=== PATIENT | male | born 1995 | race Caucasian/White ===

== ENCOUNTER 2017-11-16 14:43 | Observation (INO) | payer MEDICAID, OTHER ==
[2017-11-16] MEDS ORDERED: NS 0.9% 1000 ML* 2,000 ML IV ONE (15:27)
[2017-11-16] MEDS ORDERED: LORazepam INJ* 2 MG/ML 1 ML VIAL IV ONE (15:27)
[2017-11-16 16:13] LABS: ABS Basophils 0 10^3/ul (0-0.2); ABS Eosinophils 0.2 10^3/ul (0-0.6); ABS Monocytes 0.5 10^3/ul (0-0.8); ABS Neutrophils 4.4 10^3/ul (1.5-7.7); ABS Nucleated RBC 0 10^3/ul; Eosinophil % 2.3 % (0-6); Hematocrit 39 % (42-52); Hemoglobin 13.5 g/dl (14.0-18.0); Lymphocyte % 28.2 % (25-47); Mean Corpuscular HGB Conc 35 g/dl (31-36); Mean Corpuscular Hemoglobin 28 pg (27-31); Mean Corpuscular Volume 81 fL (80-94); Mean Platelet Volume 8 um3 (7.4-10.4); Nucleated Red Blood Cells % 0; Platelet Count 191 10^3/ul (150-450); Red Blood Count 4.78 10^6/ul (4.0-5.4); Red Cell Distribution Width 13 % (10.5-15); White Blood Count 7.1 10^3/ul (3.5-10.8)
[2017-11-16 16:27] LABS: EGFR Non-African American 99.8 (>60)
[2017-11-16] MEDS ORDERED: LORazepam INJ* 2 MG/ML 1 ML VIAL IV PUSH ONE (16:38)
[2017-11-16] MEDS: NS 0.9% 1000 ML* 1,000 ML IV SCH (18:08)
[2017-11-16] MEDS ORDERED: Methadone TAB* 10 MG PO PRN (18:34)
--- NOTE | 2017-11-16 18:36 | ED ---
Rex Bowie Abhishek, scribed for Atul Larson MD on 11/16/17 at 1542 . Substance Abuse/Use - HPI Summary HPI Summary: This patient is a 22 year old M BIBA with a chief complaint of substance abuse since 1300 on 11/16/17. The pt was found unresponsive, not breathing and unconscious in his apartment by his landlord. Police and EMS both arrived on the scene and the police gave the pt narcan. Overdose, 1100 armenian equivalent to baclofen. The police gave pt the Narcan. According to the pt, he was trying to get high and currently the pt is out of pt rehab. Pt overdosed on phenibut ( 2 grams) and was also taking his typical dosage (105 mg) of methadone. Currently pt is awake and states he is undergoing withdrawal.Pt also reports shaking behavior. The Pt denies abd pain. - History Of Current Complaint Chief Complaint: EDOverdose Stated Complaint: OVERDOSE Time Seen by Provider: 11/16/17 15:08 Hx Obtained From: Patient, EMS Severity Currently: None Aggravating Factor(s): Nothing Alleviating Factor(s): Nothing Associated Signs And Symptoms: Other: - Syncope and Negative abd pain - Allergies/Home Medications Allergies/Adverse Reactions: Allergies Allergy/AdvReac Type Severity Reaction Status Date / Time Ondansetron [From Zofran] Allergy Severe INFLAMMATION Verified 06/12/16 16:48 AT IV SITE Buspirone [From Buspar] Allergy tardive Verified 06/12/16 16:48 dyskinesia PMH/Surg Hx/FS Hx/Imm Hx Respiratory History: Reports: Hx Asthma Sensory History: Reports: Hx Contacts or Glasses Opthamlomology History: Reports: Hx Contacts or Glasses Neurological History: Reports: Hx Migraine Psychiatric History: Reports: Hx Anxiety, Hx Depression, Hx Substance Abuse - Surgical History Surgery Procedure, Year, and Place: APPENDECTOMY Hx Anesthesia Reactions: No - Immunization History Immunizations Up to Date: Yes Infectious Disease History: No Infectious Disease History: Denies: Hx Clostridium Difficile, Hx Hepatitis, Hx Human Immunodeficiency Virus (HIV), Hx of Known/Suspected MRSA, Hx Shingles, Hx Tuberculosis, Hx Known/ Suspected VRE, Hx Known/Suspected VRSA, Traveled Outside the [place] in Last 30 Days - Family History Known Family History: Positive: Other - Negative Cancer Negative: Cardiac Disease, Diabetes - Social History Alcohol Use: None Substance Use Type: Reports: Other Substance Use Comment - Amount & Last Used: methadone. muscle relaxers Smoking Status (MU): Former Smoker Type: eCigarettes Review of Systems Constitutional: Negative Eyes: Negative ENT: Negative Cardiovascular: Negative Positive: Other - no Respiratory rate (onset); Currently breathing normally Negative: Abdominal Pain Genitourinary: Negative Musculoskeletal: Other - shaking behavior Skin: Negative Positive: Syncope - Onset (LOC) Psychological: Normal All Other Systems Reviewed And Are Negative: Yes Physical Exam - Summary Physical Exam Summary: General: agitated and figitating Skin: warm, color reflects adequate perfusion, dry Head: normal Eyes: pupils 5 mm minimal reaction ENT: normal Neck: supple, nontender Respiratory: CTA, breath sounds present Cardiovascular: RRR Abdomen: soft, nontender Bowel: present Musculoskeletal: normal, strength/ROM intact Neurological: normal, sensory/motor intact, A&O x3 Psychological: affect/mood appropriate Triage Information Reviewed: Yes Vital Signs On Initial Exam: Initial Vitals Temp Pulse Resp BP Pulse Ox 96.7 F 66 17 148/83 100 11/16/17 14:57 11/16/17 14:57 11/16/17 14:57 11/16/17 14:57 11/16/17 14:57 Vital Signs Reviewed: Yes - Jerry Coma Scale Coma Scale Total: 15 Diagnostics - Vital Signs Vital Signs Temp Pulse Resp BP Pulse Ox 11/16/17 15:36 17 11/16/17 14:57 96.7 F 66 17 148/83 100 - Laboratory Lab Results: Lab Results 11/16/17 11/16/17 11/16/17 Range/Units 16:00 16:00 16:00 WBC 7.1 (3.5-10.8) 10^3/ul RBC 4.78 (4.0-5.4) 10^6/ul Hgb 13.5 L (14.0-18.0) g/dl Hct 39 L (42-52) % MCV 81 (80-94) fL MCH 28 (27-31) pg MCHC 35 (31-36) g/dl RDW 13 (10.5-15) % Plt Count 191 (150-450) 10^3/ul MPV 8 (7.4-10.4) um3 Neut % (Auto) 62.0 (38-83) % Lymph % (Auto) 28.2 (25-47) % Major % (Auto) 6.9 (1-9) % Eos % (Auto) 2.3 (0-6) % Baso % (Auto) 0.6 (0-2) % Absolute Neuts (auto) 4.4 (1.5-7.7) 10^3/ul Absolute Lymphs (auto) 2.0 (1.0-4.8) 10^3/ul Absolute Monos (auto) 0.5 (0-0.8) 10^3/ul Absolute Eos (auto) 0.2 (0-0.6) 10^3/ul Absolute Basos (auto) 0 (0-0.2) 10^3/ul Absolute Nucleated RBC 0 10^3/ul Nucleated RBC % 0 INR (Anticoag Therapy) 1.00 (0.77-1.02) APTT 34.5 (26.0-36.3) seconds Sodium 138 (133-145) mmol/L Potassium 4.0 (3.5-5.0) mmol/L Chloride 104 (101-111) mmol/L Carbon Dioxide 28 (22-32) mmol/L Anion Gap 6 (2-11) mmol/L BUN 5 L (6-24) mg/dL Creatinine 0.93 (0.67-1.17) mg/dL Est GFR ( Amer) 128.4 (>60) Est GFR (Non-Af Amer) 99.8 (>60) BUN/Creatinine Ratio 5.4 L (8-20) Glucose 81 (70-100) mg/dL Lactic Acid (0.5-2.0) mmol/L Calcium 9.2 (8.6-10.3) mg/dL Total Bilirubin 0.40 (0.2-1.0) mg/dL AST 17 (13-39) U/L ALT 8 (7-52) U/L Alkaline Phosphatase 71 (34-104) U/L Total Creatine Kinase 117 (10-223) U/L CK-MB (CK-2) 3.9 (0.6-6.3) ng/mL Troponin I 0.00 (<0.04) ng/mL C-Reactive Protein 3.23 (< 5.00) mg/L Total Protein 7.2 (6.4-8.9) g/dL Albumin 4.2 (3.2-5.2) g/dL Globulin 3.0 (2-4) g/dL Albumin/Globulin Ratio 1.4 (1-3) TSH 1.01 (0.34-5.60) mcIU/mL Salicylates < 2.50 (<30) mg/dL Acetaminophen < 15 mcg/mL Serum Alcohol < 10 (<10) mg/dL 11/16/17 Range/Units 16:00 WBC (3.5-10.8) 10^3/ul RBC (4.0-5.4) 10^6/ul Hgb (14.0-18.0) g/dl Hct (42-52) % MCV (80-94) fL MCH (27-31) pg MCHC (31-36) g/dl RDW (10.5-15) % Plt Count (150-450) 10^3/ul MPV (7.4-10.4) um3 Neut % (Auto) (38-83) % Lymph % (Auto) (25-47) % Major % (Auto) (1-9) % Eos % (Auto) (0-6) % Baso % (Auto) (0-2) % Absolute Neuts (auto) (1.5-7.7) 10^3/ul Absolute Lymphs (auto) (1.0-4.8) 10^3/ul Absolute Monos (auto) (0-0.8) 10^3/ul Absolute Eos (auto) (0-0.6) 10^3/ul Absolute Basos (auto) (0-0.2) 10^3/ul Absolute Nucleated RBC 10^3/ul Nucleated RBC % INR (Anticoag Therapy) (0.77-1.02) APTT (26.0-36.3) seconds Sodium (133-145) mmol/L Potassium (3.5-5.0) mmol/L Chloride (101-111) mmol/L Carbon Dioxide (22-32) mmol/L Anion Gap (2-11) mmol/L BUN (6-24) mg/dL Creatinine (0.67-1.17) mg/dL Est GFR ( Amer) (>60) Est GFR (Non-Af Amer) (>60) BUN/Creatinine Ratio (8-20) Glucose (70-100) mg/dL Lactic Acid 0.6 (0.5-2.0) mmol/L Calcium (8.6-10.3) mg/dL Total Bilirubin (0.2-1.0) mg/dL AST (13-39) U/L ALT (7-52) U/L Alkaline Phosphatase (34-104) U/L Total Creatine Kinase (10-223) U/L CK-MB (CK-2) (0.6-6.3) ng/mL Troponin I (<0.04) ng/mL C-Reactive Protein (< 5.00) mg/L Total Protein (6.4-8.9) g/dL Albumin (3.2-5.2) g/dL Globulin (2-4) g/dL Albumin/Globulin Ratio (1-3) TSH (0.34-5.60) mcIU/mL Salicylates (<30) mg/dL Acetaminophen mcg/mL Serum Alcohol (<10) mg/dL Result Diagrams: 11/16/17 16:00 11/16/17 16:00 Lab Statement: Any lab studies that have been ordered have been reviewed, and results considered in the medical decision making process. - EKG 1532 EKG Rhythm: Sinus Rhythm - 77 bpm - Additional Comments Diagnostic Additional Comments: An EKG at 1532 shows borderline prolonged QT interval (QTc at 478), and ST elevation probable normal early repolarization pattern. Course/Dx - Course Course Of Treatment: NURSING DISCUSSED WITH POISON CONTROL. ADMIT HOSPITALIST. CRITICAL CARE TIME LESS THAN 30 MINUTES. - Diagnoses Provider Diagnoses: Overdose Discharge - Discharge Plan Condition: Stable Disposition: ADMITTED TO [facility] documentation as recorded by the Rex mir Abhishek accurately reflects the service I personally performed and the decisions made by me, Atul Larson MD.
[2017-11-16] MEDS: LORazepam INJ* 2 MG/ML 1 ML VIAL IV PUSH PRN (20:33)
--- NOTE | 2017-11-16 23:48 | HP ---
HISTORY AND PHYSICAL: * ADDENDUM: Please note that I was able to be contacted by a nurse from [facility] on [facility] who told me that the patient is currently receiving mg of methadone a day and she confirmed that the medications that the patient receive at their clinic would not come up on the I - STOP. At this point, I believe that it is safer for the patient to be placed back on a smaller dose of the methadone for him to be withdrawing and be medicated with Ativan for that. At this point, I am going to place him back on methadone and when he is awake enough, give him a smaller dose for the night. [id number]/[facility] #: [id number] MTDD
--- NOTE | 2017-11-16 23:56 | HP ---
HISTORY AND PHYSICAL: ADDENDUM: After discussing the case with our psych social worker, she was able to have me contacted by Leticia who is a counselor from the [facility] on [facility]. Leticia was able to confirm that the patient is a current patient at the [facility]. Although she was able to confirm that , she was unable to confirm anything else. She could not give me information about the patient's methadone dose. All this is the patient's methadone could have been prescribed by them, could not appear on I-STOP control of medication checked when I did it. I asked her to connect me with the healthcare professional who could give me the information. Leticia stated that she requests for me to fax her signed by the patient's consent. But, I informed Leticia that unfortunately, the patient is in and out of consciousness after 4 mg of IV Ativan and that will be right next at this point impossible. Leticia told me that I should hold on the line and she will transfer me to healthcare professional who be able to give me the required information and then hung up. [id number]/[facility] #: [id number] ANGELA
[2017-11-17] MEDS: NS 0.9% 1000 ML* 1,000 ML IV SCH (00:32)
--- NOTE | 2017-11-17 00:56 | HP ---
TWO ADDENDUMS NOW INCLUDED ON THIS REPORT HISTORY AND PHYSICAL: DATE OF ADMISSION: 11/16/17 CHIEF COMPLAINT: The patient was found unresponsive by his landlord in his apartment. He was treated with Narcan, he woke up, got agitated. He apparently took 105 mg of methadone today and some ration equivalent of baclofen. HISTORY OF PRESENT ILLNESS: As above mentioned, Aryan Carrera is a 22-year-old drug- addict with a history of IV drug use who had been on methadone for some time. He currently received a total of 4 mg of IV Ativan after he became agitated after Narcan. In the ED, he is intermittently waking up and giving me fractional information. He stated that he had been on methadone for several months prescribed by a clinic on [facility] in [place], [place] from [facility]. Having said that, when I checked his I-STOP account, he does not have any narcotics prescribed to him that I could find. He also took an equivalent of ration medication that he ordered online. That was the only new thing that he did today. He woke up after the Narcan, got agitated, got 4 mg of IV Ativan. He is going to be placed on overnight observation in the Intensive Care Unit with his diagnosis of methadone overdose. PAST MEDICAL HISTORY: 1. History of IV drug use. 2. History of depression. 3. History of ADHD. MEDICATIONS: Unknown. The patient stated that he takes methadone at 105 mg daily prescribed by [facility] on [facility]. Once again, that had not been proven. ALLERGIES: From medical records include ZOFRAN and BUSPIRONE. FAMILY HISTORY: Unobtainable from the patient. SOCIAL HISTORY: The patient stated that he had been clean for several months and he uses methadone. He denies any alcohol or tobacco use. REVIEW OF SYSTEMS: Basically unobtainable from this sedated patient. Asked his next of kin, he listed his mother, Zamzam Espinosa, who lives in [place], [place]. PHYSICAL EXAMINATION GENERAL: The patient is a pleasant 22-year-old male who is in and out of being able to converse and responsive. The patient appears in no acute distress, markedly sedated. He is oriented when he comes to, but then he falls asleep within seconds. VITAL SIGNS: Blood pressure 135/76, heart rate of 84 and regular, respiratory rate 20, oxygen saturation is 99% on room air, and temperature of 96.7. HEENT: Head, atraumatic and normocephalic. Eyes: Pupils are equal and reactive to light and accommodation. Oropharynx clear. Mucosa moist. NECK: Supple. No JVD, no bruit bilaterally RESPIRATORY: Clear to auscultation bilaterally. CARDIOVASCULAR: Regular rate and rhythm, no murmur. ABDOMEN: Soft, nontender, bowel sounds present in all 4 quadrants. EXTREMITIES: There is no edema. Pulses are +2 bilaterally. No clubbing or cyanosis. NEUROLOGIC: Speech clear. Cranial nerves II through XII grossly intact. Motor strength is 5/5 bilaterally. SKIN: On evaluation of the skin, the patient has new needle daniel in bilateral antecubital areas that could be related to self-injections or something that was done by the sugar mill worker in the ambulance. LABORATORY DATA: Show a white blood cell count of 7.1, hemoglobin of 13.5, hematocrit of 39, and platelets of 191. Sodium was 138, potassium 4.0, chloride 105, carbon dioxide 28, BUN 5, and creatinine 0.93. Liver functions were unremarkable. Lactic acid of 0.6. Toxicology shows no salicylates, no acetaminophen, no alcohol. The patient's EKG showed normal sinus rhythm with a heart rate of 77 beats per minute with QTc of 478 milliseconds. There were nonspecific ST changes in anterolateral leads, most likely due to J-point elevation. Comparing with an EKG of 2013, the EKG at that point was similar but had marked tachycardia. ASSESSMENT AND PLAN: Deandre Baeza is a 22-year-old with a history of IV drug use who now overdosed on methadone and unknown ration medication that he received online. At this point, the patient is going to be observed on telemetry monitored bed in the Intensive Care Unit. He may require Ativan on an as needed basis for agitation. I will try to obtain medical records from [facility] to see if the patient in fact does receive methadone and what doses. For DVT prophylaxis, the patient is going to be encouraged with ambulation. He is otherwise low risk. TIME SPENT: Approximately 55 minutes was spent on the admission of this patient. ADDENDUM NO.1: Please note that I was able to be contacted by a nurse from [facility] on [facility] who told me that the patient is currently receiving mg of methadone a day and she confirmed that the medications that the patient receive at their clinic would not come up on the I- STOP. At this point, I believe that it is safer for the patient to be placed back on a smaller dose of the methadone for him to be withdrawing and be medicated with Ativan for that. At this point, I am going to place him back on methadone and when he is awake enough, give him a smaller dose for the night. ADDENDUM NO.2: After discussing the case with our social insurance administrator, she was able to have me contacted by Leticia who is a counselor from the [facility] on [facility]. Leticia was able to confirm that the patient is a current patient at the [facility]. Although she was able to confirm that, she was unable to confirm anything else. She could not give me information about the patient's methadone dose. All this is the patient's methadone could have been prescribed by them, could not appear on I-STOP control of medication checked when I did it. I asked her to connect me with the healthcare professional who could give me the information. Leticia stated that she requests for me to fax her signed by the patient's consent. But, I informed Leticia that unfortunately, the patient is in and out of consciousness after 4 mg of IV Ativan and that will be right next at this point impossible. Leticia told me that I should hold on the line and she will transfer me to healthcare professional who be able to give me the required information and then hung up. [id number]/[facility] #: [id number]/[facility]PS #: [id number]/[facility] #: [id number] MTDJanet
[2017-11-17] MEDS ORDERED: NS 0.9% 1000 ML* 1,000 ML IV SCH (04:15)
[2017-11-17] MEDS ORDERED: Ketorolac TAB * 10 MG TAB PO PRN (04:33)
[2017-11-17] MEDS: Nicotine PATCH 21 MG/24 HR* PATCH TRANSDERM SCH ×2 (04:56→15:44)
[2017-11-17] MEDS: Nicotine Inhaler* 10 MG AMP INH PRN ×2 (04:56→09:01)
[2017-11-17] MEDS: LORazepam INJ* 2 MG/ML 1 ML VIAL IV PUSH PRN (04:57)
[2017-11-17 05:00] LABS: Urine Appearance Clear; Urine Blood Negative (Negative); Urine Color Yellow; Urine Ketones Negative (Negative); Urine Protein Negative (Negative); Urine Specific Gravity 1.014 (1.010-1.030); Urine Urobilinogen Negative (Negative)
[2017-11-17] MEDS ORDERED: Mouth Piece, Nicotine* 1 EACH CARTRIDGE INH ONE (05:00)
[2017-11-17] MEDS ORDERED: LORazepam TAB(*) 1 MG PO PRN (10:33)
[2017-11-17] MEDS ORDERED: Methadone TAB* 10 MG PO ONE ×2 (14:34→15:30)
--- NOTE | 2017-11-17 15:12 | CONS ---
PSYCHIATRY CONSULTATION DATE OF ADMISSION: 11/16/2017. DATE OF CONSULTATION: 11/17/2017. ATTENDING PHYSICIAN: Dr. Abel Ybarra. CONSULTING PHYSICIAN: Dr. Sammy Holbrook. REASON FOR CONSULT: Polydrug overdose. SUBJECTIVE HISTORY: Psychiatry is asked to see this 22-year-old, single, white male with a history o f IV drug abuse who was brought in by ambulance after being found by his landlord unconscious with a suspected overdose. The patient was administered Narcan in the field and became agitated and was the reafter given 4 mg of Ativan, which made him obtunded and difficult to collect a history from. Since waking up in the ICU, it is noted that he ingested his prescribed Methadone dose, but with an added amount of a second substance name Phenibut, which is apparently a synthetic gabapentinoid over-the-co unter anxiolytic medication in an attempt to relieve his anxiety. When I met the patient, he is stat ing "I've taken this stuff a hundred times, I never had a reaction like this." He states that he yo es the Phenibut several times per week when his anxiety is bad. He denies that he has ever had a sim ilar reaction. I asked him about his Methadone and he insists that the dose is 105 mg daily from the [facility] in [place], [place]. He did sign a release of information, but we have yet to hear from that agency. When asked if he had any intention of harming himself, he stea dfastly denies this, stating that he has never been suicidal, nor threatened to hurt himself. I did speak with his mother, Zamzam Albrecht, who resides with him in [place] and she denies that he is a danger to himself. I am told by the patient that she similarly abuses various substances recreationally. When asked about neurovegetative symptoms of depression, the patient denies these as he does symptoms of marissa or psychosis. He denies any past history of self-harm or violence towards others. PAST PSYCHIATRIC HISTORY: Significant for a brief hospitalization in [place] in 2014 when he tried t o leave AMA from a detox facility. He states his parents at that time called the hospital to prevent him leaving and they instead placed him in a psychiatric unit. He does indicate that he takes Proza c 40 mg daily from his primary care provider, a nurse practitioner named Russell Diaz, at [facility] in [facility]. In the past, he was seen by psychiatrist Dr. Luis Alberto Cox who prescribed Prozac, Adderall, a nd Flexeril. The patient states that he has not seen Dr. Cox since April of 2016 because he lost h is insurance and could no longer afford it. SUBSTANCE ABUSE HISTORY: Significant for a long history of opioid and benzodiazepine abuse. He has been in a Methadone program at [facility] for the past three months. Prior to that, he had been receiving Methadone at the [facility] in [place], [place] since February 2016. Prior to this, the patient was in the [facility] outpatient program here in [place]. He has had two prior inpatient rehabilitation stints. The first in [facility] in June of 2016; he had a second innc tie rehab at [facility] in February 2017. He has also had an inpatient detox at the [facility] in [place], [place] in 2012. In the past, he has abuse heroin IV, with the last use in February of 2017. He also has a more remote abuse pattern of benzodiazepines with last use in A ugust of 2015. He states that since being on Methadone, he has not abused alcohol or cannabis. PAST MEDICAL HISTORY: Significant for an abscess on his upper extremity secondary to IV drug abuse i 2014 for which he was hospitalized here at [facility]. ALLERGIES: BUSPAR, ZOFRAN. FAMILY HISTORY: Significant for drug abuse in his mother. SOCIAL HISTORY: The patient was born and raised in [place], [place] where he graduated high school. He states that he was accepted at [facility] and completed about a mrmc-yzx-g-half of kristina townsend, although I have not confirmed this with other sources. He is single and has no children. He r elies on [employer] and public assistance to pay his bills. He has never been in the . Has no history of sexually transmitted diseases. He has been arrested in the past for possession of cannabis and also had a drunk and disorderly charge in May of 2015. MENTAL STATUS EXAM: The patient is a young, white male with reddish hair, freckles, and a wispy bear d who is sitting up in his ICU bed, making good eye contact. Speech has a normal rate, tone and volu me and he is fairly easy to establish a rapport with. Mood is euthymic with a full affect. Thought process is linear and goal-directed. Thought content is significant for his desire to leave the hosp ital. He denies suicidal or homicidal ideations. He denies any psychotic experiences. He denies au ditory or visual hallucinations. Insight and judgment appear to be limited given his abuse of over-t he-counter Phenibut. Cognitively, he is awake and alert with what would appear to be an average inte llect. DIAGNOSES: AXIS I: Sedative hypnotic intoxication; opioid use disorder. AXIS II: Deferred. ASSESSMENT: The patient is a 22-year-old, single, white male with a history of opioid use disorder w ho has been also abusing a sedative hypnotic agent called Phenibut, which is in the Gabapentin family of synthetic anxiety and pain relieving medications. Apparently he has been purchasing this on line and tells me that it cannot be tested in his routine drug test at [facility]. We alford ve contacted that agency for collateral information and are still attempting to confirm his actual da eddie dose of Methadone. I do not see any evidence of self-harm in this patient and it does not appear that the patient is at any risk for further overdose of an intentional nature. RECOMMENDATIONS TO PRIMARY TEAM: I recommend that the patient follow-up with [facility]. There he can received both substance abuse and psychiatric services. He does not belong on a o ne-to-one and he would not benefit from inpatient psychiatric treatment at this time. I would not re commend any medications strategies until the Phenibut is completely out of his system. From a psychi atric standpoint, he is cleared for discharge. Psychiatry is signing off of this case at this time, but can be reconsulted in the event of any gil e in presentation. Thank you for the consult. [id number]/[facility] #: [id number]
[2017-11-17] MEDS ORDERED: Methadone TAB* 5 MG PO ONE (15:30)
[2017-11-17 16:20] VITALS: BP 147/84
[2017-11-17] MEDS ORDERED: Nicotine Patch Removal NOTE FOLLOW UP SCH (21:00)
--- NOTE | 2017-11-18 04:52 | DS ---
DISCHARGE SUMMARY: DATE OF ADMISSION: 11/16/17 DATE OF DISCHARGE: 11/17/17 PRIMARY CARE PHYSICIAN: Unknown. ATTENDING PHYSICIAN WHILE IN THE HOSPITAL: Dr. Cherry Mathis * (dictation provided by Genevieve Ochoa NP) PRINCIPAL DIAGNOSIS: Overdose. SECONDARY DIAGNOSES: 1. History of depression. 2. History of attention deficit hyperactivity disorder. 3. History of IV drug use. MEDICATIONS AT THE TIME OF DISCHARGE: There were no changes in his medications. He will continue on: 1. Clonidine 0.2 mg p.o. b.i.d. 2. Methadone 105 mg p.o. daily. 3. Prozac 40 mg p.o. daily. 4. Ibuprofen 800 mg p.o. as needed. HOSPITAL COURSE: Mr. Baeza is a 22-year-old with history of drug addiction for IV drug use, who has been on methadone for some time. He is currently receiving 105 mg of methadone at the methadone clinic in [place] on a daily basis. He took a medication that he had ordered offline called Phenibut prior to receiving his methadone yesterday. He was found unresponsive and was given Narcan by EMS. He became agitated and then was medicated with Ativan in the emergency room. He was placed in the ICU overnight for observation with a diagnosis of methadone overdose. Initial lab work showed WBCs of 7.1, hemoglobin 13.5, hematocrit of 39, platelet count was 191. Sodium was 138, potassium 4.0, chloride was 104, carbon dioxide 28, anion gap of 6, BUN was 5, creatinine 0.93. Urine was clear, yellow, pH was 5, and specific gravity 1.014 and urine protein, ketones, blood, nitrites, bilirubin, urobilinogen, urine leukocyte esterase, and urine glucose were all negative. Urine toxicology was all negative. Urine amphetamine screen was presumptively positive. Mr. Baeza is doing well today. I was called by the nursing staff from ICU stating that the patient wanted to leave and he was ready to go home that he needed to be in the methadone clinic by 12 noon today. Upon seeing the patient today, I explained that he would need to be seen and cleared by the psychiatrist in the hospital. He was agreeable to that. He was unable to make it to the methadone clinic today, so he did receive 105 mg of methadone p.o. while in the hospital prior to discharge. ingestion was witnessed by myself and his nurse. He has no other complaints. Vital signs today, temperature was 99.4, last blood pressure 127/84, heart rate was 96, respirations were 16, and oxygen saturation was 99%. The patient denies any nausea, vomiting, or diarrhea. Denies fever or chills. Denies any chest pain. Denies any shortness of breath. Denies any urinary symptoms or dysuria. PHYSICAL EXAMINATION: HEENT is within normal limits. Constitutional: The patient appears mildly agitated but is receptive to the plan of care. Cardiac: S1, S2. Regular rate and rhythm. No rubs or gallops. Respirations are easy, even lung sounds are clear to auscultation bilaterally. Abdomen is soft and nontender. Bowel sounds are present x4. He is able to move all extremities. He is alert and oriented x3. Mr. Baeza is medically stable for discharge home and will follow up at the methadone clinic tomorrow as scheduled for continued treatment of his addiction. I recommended strongly to Mr. Baeza that he refrain from ordering medication from the internet and only take medication that are prescribed to him by his doctors. Mr. Baeza verbalized understanding. DISPOSITION: To home. DIET: Regular diet as tolerated. ACTIVITY: As tolerated. FOLLOWUP PLAN: He will follow up with methadone clinic tomorrow as scheduled and continue counseling through the methadone clinic in [place]. TIME SPENT: Approximately 60 minutes was spent on the discharge of this patient ; more than half the time was spent with the patient at the bedside reviewing events leading up to his hospitalization and during hospitalization performing physical exam and reviewing the plan of care. GENEVIEVE OCHOA, EDA [id number]/[facility] #: [id number] ANGELA
== END 2017-11-17 16:00 | disposition home or self-care (01) ==
LOC: ED 14:43 → ICU 16:48
PROVIDERS: ADMIT Internal Medicine; ATTEND Internal Medicine
DX: T40.3X1A Poisoning by methadone, accidental (unintentional), initial encounter (principal); T42.8X1A Poisoning by antiparkinsonism drugs and other central muscle-tone depressants, accidental (unintentional), initial encounter; Y92.039 Unspecified place in apartment as the place of occurrence of the external cause; F90.9 Attention-deficit hyperactivity disorder, unspecified type; F11.20 Opioid dependence, uncomplicated; Z79.899 Other long term (current) drug therapy; F32.9 Major depressive disorder, single episode, unspecified; Z87.891 Personal history of nicotine dependence; F13.20 Sedative, hypnotic or anxiolytic dependence, uncomplicated
CPT/HCPCS: 36415; 80053; 80307; 80320; 80329; 81003; 82550; 82553; 83605; 84443; 84484; 85025; 85610; 85730; 86140; 87641; 93005; 96361; 96374; 96376; 99283; A9270-GY; G0378; G0480; J2060